=== PATIENT | female | born 1980 | race Caucasian/White ===

== ENCOUNTER 2024-03-18 12:56 | Outpatient (CLI) | payer OTHER, SELFPAY ==
--- NOTE | 2024-03-18 13:00 | MM_ITS ---
WS: [id number] BILATERAL 3D TOMOSYNTHESIS DIGITAL SCREENING MAMMOGRAPHY WITH CAD CLINICAL INFORMATION: SCREENING HISTORY: Screening mammogram. No current complaints. COMPARISON: Baseline TECHNIQUE: Bilateral CC and MLO views. FINDINGS: The breasts are composed of heterogeneous fibroglandular density tissue, which can limit the detectio n of small underlying mass lesions. Partially obscured ovoid nodule posterior depth LEFT breast along the posterior nipple line measuring 11 mm. Recommend LEFT breast diagnostic mammography and ultrasou nd in further evaluation. Additional partially obscured ovoid nodule upper quadrant RIGHT breast measuring 12 mm only well seen on the MLO view. Recommend RIGHT breast diagnostic mammography and ultrasound. No comparisons. MM/[place] [id number] IMPRESSION: BI-RADS: 0-Incomplete: Need additional imaging evaluation FOLLOW UP: Need Additional Imaging Recommend bilateral diagnostic mammography and ultrasound described above.
== END 2024-03-18 12:57 | disposition home or self-care (01) ==
PROVIDERS: PCP Nurse Practitioner; Visit Provider Nurse Practitioner
DX: Z12.31 Encounter for screening mammogram for malignant neoplasm of breast (principal); R92.333 Mammographic heterogeneous density, bilateral breasts; R92.323 Mammographic fibroglandular density, bilateral breasts; N63.20 Unspecified lump in the left breast, unspecified quadrant; N63.10 Unspecified lump in the right breast, unspecified quadrant
CPT/HCPCS: 77063; 77067